=== PATIENT | female | born 1940 | race Caucasian/White ===

== ENCOUNTER 2017-08-08 11:39 | Emergency (ER) | payer OTHER ==
[~2017-08-08] VITALS: Ht 149.9 cm; Wt 75.0 kg
[~2017-08-08 11:39] MED LIST: ACTOS30 MG PO; ADULT LOW DOSE81 M1 PO; ALER-CAP25 M1 PO; ALPRAZOLAM0.25 M2 PO; ASPIR 8181 M1 PO; ASPIR-LOW81 MG PO; ASPIR-TRIN325 M1 PO; B-COMPLEX WITH1 EAC2 PO; B-COMPLEX-VITA1 EACH PO; BACTRIM,SEPT1 TABLET PO; BMP 0; CARAFATE1 GM PO; CATAPRES0.2 MG PO; CATAPRES0.3 MG PO; CELEBREX200 MG PO; CELEXA10 MG PO; CELLCEPT500 MG PO; CIPROFLOXACIN500 M1 PO; CITALOPRAM HBR10 M1 PO; COMPLETE MULTI1 EAC1 PO; Cellcept PO; Ecotrin PO; FEOSOL325 MG PO; FLAGYL250 MG PO; FOSAMAX70 MG PO; Feosol PO; Fosamax PO; GLIPIZIDE10 MG PO; GLIPIZIDE5 MG PO; GLUCOPHAGE1000 MG PO; HYDROCHLOROTHIA25 MG PO; JANUVIA100 MG PO; LANTUS 3 M100 UNITS/ SC; LANTUS 3 M100 UNITS1 SC; LANTUS100 UNIT/1 SQ; LATANOPROST2.5 ML LEFT EYE; LIPITOR10 MG PO; LIPITOR5 MG PO; LISINOPRIL10 MG PO; LISINOPRIL40 MG PO; LOPERAMIDE2 MG PO; MESTINON180 MG PO; MESTINON60 MG PO; METRONIDAZOLE500 MG PO; MICARDIS HCT PO; MICARDIS HCT1 TABLET PO; MICARDIS40 MG PO; MYCOPHENOLATE250 MG PO; NEXIUM40 MG PO; NON-ASPIRIN EX500 MG PO; NORVASC10 MG PO; OSTEO BI-FLEX1 EAC1 PO; OSTEO-BIFLE1 CAPSULE PO; Osteo-Biflex,Flex-A- PO; PRESERVISION S1 EACH PO; PRESERVISION T1 EACH PO; PROTONIX40 MG PO; PROZAC10 MG PO; PYRIDOSTIGMINE60 MG PO; SENOKOT S,PE1 TABLET PO; TRAMADOL HCL50 MG PO; Vicodin,Lortab 5/500 PO; Vicodin,Norco 5/325 PO; Xanax PO; ZESTRIL,PRINIV2.5 MG PO; ZOFRAN ODT4 MG PO; celeXA PO
[2017-08-08] MEDS ORDERED: PREDNISONE20 MG PO (11:51)
[2017-08-08] MEDS ORDERED: CARAFATE1 GM PO (11:52)
[2017-08-08] MEDS ORDERED: LEXAPRO10 MG PO (11:52)
[2017-08-08] MEDS ORDERED: PROTONIX40 MG PO (11:52)
[2017-08-08] MEDS ORDERED: GLIPIZIDE10 MG PO (11:53)
[2017-08-08] MEDS ORDERED: CELLCEPT500 MG PO (11:53)
[2017-08-08] MEDS ORDERED: NORVASC10 MG PO (11:54)
[2017-08-08] MEDS ORDERED: CATAPRES0.2 MG PO (11:54)
[2017-08-08] MEDS ORDERED: LIPITOR10 MG PO (11:55)
[2017-08-08] MEDS ORDERED: FOSAMAX70 MG PO (11:55)
[2017-08-08] MEDS ORDERED: TRAMADOL HCL50 MG PO (11:55)
[2017-08-08] MEDS ORDERED: VITAMIN B COMP1 EACH PO (11:56)
[2017-08-08] MEDS ORDERED: PRESERVISION T1 EACH PO (11:57)
[2017-08-08] MEDS ORDERED: ASPIR 8181 M1 PO (11:57)
[2017-08-08] MEDS ORDERED: FLAGYL250 MG PO (11:58)
[2017-08-08] MEDS ORDERED: NOVOLOG PE100 UNITS/ SC (11:59)
[2017-08-08] MEDS ORDERED: MIRALAX17 GM PO (11:59)
[2017-08-08] MEDS ORDERED: COZAAR25 MG PO (11:59)
[2017-08-08 12:28] LABS: EOSINOPHIL (%) 0.3 % (0-5); EOSINOPHIL COUNT 0.1 K/uL (0-0.3); HEMATOCRIT 32.9 % (36.0-46.0); IMMATURE GRANULOCYTE (%) 2.1 % (0.0-0.7); IMMATURE GRANULOCYTE COUNT 0.4 K/uL; LYMPHOCYTE COUNT 1.7 K/uL (1.0-2.8); MCH 30.1 PG (29.0-34.0); MCHC 32.2 G/DL (30.0-36.0); MCV 93.5 FL (83-99); MEAN PLAT.VOLUME 9.6 uM^3 (9.5-12.4); MONOCYTE (%) 9.3 % (3-12); MONOCYTE COUNT 1.8 K/uL (0-0.8); NRBC (%) 0.1 /100 WBC (0-0); PLATELET COUNT 242 K/uL (156-360); RBC DIS.WIDTH-CV 13.4 % (11.8-14.6); RED BLOOD COUNT 3.52 M/uL (3.80-5.20)
[2017-08-08 12:42] LABS: CHLORIDE 103 mEq/L (99-109); POTASSIUM 3.3 mEq/L (3.7-5.4); SODIUM 139 mEq/L (136-147)
[2017-08-08 12:43] LABS: GLUCOSE 218 mg/dL (70-99)
[2017-08-08 12:45] LABS: ANION GAP 16 MEQ/L (2-14)
[2017-08-08 12:47] LABS: GFR ESTIMATE (CALCULATED) 57 mL/min/
[2017-08-08 12:48] LABS: UREA NITROGEN (BUN) 24 mg/dL (9-23)
[2017-08-08 12:50] LABS: CREATINE KINASE 322 IU/L (1-294); TOTAL CK 322 IU/L (1-294)
[2017-08-08 13:00] LABS: CK-MB 2.9 ng/mL (0.0-4.9)
[2017-08-08] MEDS ORDERED: PERCOCET 5/31 TABLET PO (15:54)
[2017-08-08 16:20] VITALS: BP 189/110
== END 2017-08-08 16:54 | disposition home or self-care (01) ==
LOC: TRA 11:39 → EME 11:39
PROVIDERS: Emergency Medicine
PROC: 2W3JX1Z Immobilization of Right Finger using Splint (ICD-10-PCS; principal; 2017-08-08)
DX: S62.644A Nondisplaced fracture of proximal phalanx of right ring finger, initial encounter for closed fracture (principal); S00.12XA Contusion of left eyelid and periocular area, initial encounter; S60.512A Abrasion of left hand, initial encounter; M25.512 Pain in left shoulder; S20.212A Contusion of left front wall of thorax, initial encounter; W10.9XXA Fall (on) (from) unspecified stairs and steps, initial encounter; I12.9 Hypertensive chronic kidney disease with stage 1 through stage 4 chronic kidney disease, or unspecified chronic kidney disease; E11.22 Type 2 diabetes mellitus with diabetic chronic kidney disease; N18.9 Chronic kidney disease, unspecified; Z79.4 Long term (current) use of insulin; Z87.442 Personal history of urinary calculi; Z96.653 Presence of artificial knee joint, bilateral
CPT/HCPCS: 70450; 70486; 71260; 72125; 72129; 72132; 73030; 73130; 73590; 73630; 74177; 80048; 82550; 82553; 85025; 99281; 99284; J1885; J2405; J7030

== ENCOUNTER 2017-12-10 10:06 | Inpatient (IN) | payer OTHER ==
[~2017-12-10] VITALS: Ht 149.9 cm; Wt 71.1 kg
[~2017-12-10 10:06] MED LIST changes: +COZAAR100 MG PO; +LATANOPROST2.5 ML BOTH EYES; -LATANOPROST2.5 ML LEFT EYE; +LEXAPRO10 MG PO; +MIRALAX17 GM PO; +NOVOLOG PE100 UNITS/ SC; +PERCOCET 5/31 TABLET PO; +PREDNISONE10 MG PO; +VITAMIN B COMP1 EACH PO
[2017-12-10 11:59] LABS: BASOPHIL (%) 0.4 % (0-1); EOSINOPHIL (%) 0.7 % (0-5); EOSINOPHIL COUNT 0.1 K/uL (0-0.3); HEMATOCRIT 39.7 % (36.0-46.0); IMMATURE GRANULOCYTE (%) 0.9 % (0.0-0.7); LYMPHOCYTE (%) 11.8 % (15-42); LYMPHOCYTE COUNT 1.1 K/uL (1.0-2.8); MCH 30.1 PG (29.0-34.0); MCHC 32.7 G/DL (30.0-36.0); MCV 91.9 FL (83-99); MONOCYTE (%) 11.3 % (3-12); MONOCYTE COUNT 1.1 K/uL (0-0.8); NEUTROPHIL (%) 74.9 % (45-76); NEUTROPHIL COUNT 7.2 K/uL (1.8-6.4); PLATELET COUNT 396 K/uL (156-360); RBC DIS.WIDTH-CV 13.4 % (11.8-14.6); RBC DIS.WIDTH-SD 45.4 % (39-53); RED BLOOD COUNT 4.32 M/uL (3.80-5.20); WHITE BLOOD COUNT 9.6 K/uL (4.1-10.2)
[2017-12-10 12:10] LABS: ALBUMIN 3.4 g/dL (3.2-4.8); CHLORIDE 110 mEq/L (99-109); SODIUM 141 mEq/L (136-147)
[2017-12-10 12:12] LABS: GLUCOSE 81 mg/dL (70-99); TOTAL PROTEIN 5.7 g/dL (6.4-8.3)
[2017-12-10 12:14] LABS: POTASSIUM 2.2 mEq/L (3.7-5.4); TOTAL BILIRUBIN 0.4 mg/dL (0.0-1.0)
[2017-12-10 12:16] LABS: ALKALINE PHOSPHATASE 83 IU/L (3-129); CREATININE 1.1 mg/dL (0.6-1.3); GFR ESTIMATE (CALCULATED) 51 mL/min/
[2017-12-10 12:17] LABS: AST (GOT) 11 IU/L (2-34); DIRECT BILIRUBIN 0.2 mg/dL (0.0-0.3); UREA NITROGEN (BUN) 21 mg/dL (9-23)
[2017-12-10 12:19] LABS: ALT (GPT) 21 IU/L (3-49); LIPASE 26 U/L (1.0-51.0)
[2017-12-10 12:49] LABS: APPEARANCE CLEAR ((CLEAR)); BILIRUBIN NEGATIVE; BLOOD SMALL; COLOR STRAW ((YELLOW)); GLUCOSE (STRIP) NEGATIVE; KETONES NEGATIVE; LEUKOCYTES LARGE; NITRITE NEGATIVE; PROTEIN (STRIP) 30; UROBILINOGEN 0.2 MG/DL (0.2-1.0)
[2017-12-10 12:55] LABS: BACTERIA NONE SEEN /HPF; CALCIUM OXALATE CRYSTALS 1+ /HPF; EPITHELIAL CELLS RARE /HPF; MUCUS NONE SEEN /LPF; UCUL ADDED? YES; WHITE BLOOD CELLS 15-20 /HPF (0-5)
[2017-12-10] MEDS ORDERED: TRAZODONE HCL50 MG PO (16:21)
[2017-12-10] MEDS ORDERED: ZOFRAN8 MG PO (16:21)
[2017-12-10] MEDS ORDERED: ALPHAGAN 0100 DROP/5 BOTH EYES (16:21)
[2017-12-10] MEDS ORDERED: ALPRAZOLAM0.25 M2 PO (16:21)
[2017-12-10] MEDS ORDERED: TYLENOL PM EX-1 EACH PO (16:23)
[2017-12-10] MEDS ORDERED: DORZOLAMIDE-TIM10 ML BOTH EYES (16:23)
[2017-12-10 17:31] LABS: C DIFF TOXIN NEGATIVE (NEGATIVE)
[2017-12-10 19:32] VITALS: BP 164/80
[2017-12-10 23:29] VITALS: BP 156/80
[2017-12-11 03:12] VITALS: BP 131/81
[2017-12-11 06:23] LABS: HEMATOCRIT 34.3 % (36.0-46.0); MCH 30.1 PG (29.0-34.0); MCHC 32.1 G/DL (30.0-36.0); PLATELET COUNT 347 K/uL (156-360); RBC DIS.WIDTH-CV 13.7 % (11.8-14.6); RBC DIS.WIDTH-SD 47.4 % (39-53); RED BLOOD COUNT 3.65 M/uL (3.80-5.20); WHITE BLOOD COUNT 7.4 K/uL (4.1-10.2)
[2017-12-11 06:58] LABS: CHLORIDE 115 MEQ/L (99-109); CREATININE 1.2 MG/DL (0.6-1.3); GFR ESTIMATE (CALCULATED) 47 mL/min/; GLUCOSE 144 mg/dL (70-99); POTASSIUM 4.4 MEQ/L (3.7-5.4); SODIUM 142 MEQ/L (136-147); UREA NITROGEN (BUN) 18 mg/dL (9-23)
[2017-12-11 08:33] VITALS: BP 166/92
[2017-12-11 13:13] VITALS: BP 156/86
[2017-12-11 15:32] VITALS: BP 190/104
[2017-12-11 16:30] VITALS: BP 145/86
[2017-12-11 20:32] VITALS: BP 177/96
[2017-12-12] VITALS: BP 112/67
[2017-12-12 04:06] VITALS: BP 131/73
[2017-12-12 06:57] LABS: BASOPHIL (%) 0.2 % (0-1); EOSINOPHIL COUNT 0.1 K/uL (0-0.3); HEMATOCRIT 33.3 % (36.0-46.0); HEMOGLOBIN 10.6 G/DL (11.9-15.5); IMMATURE GRANULOCYTE (%) 1.4 % (0.0-0.7); LYMPHOCYTE (%) 12.1 % (15-42); MCH 29.9 PG (29.0-34.0); MCHC 31.8 G/DL (30.0-36.0); MCV 94.1 FL (83-99); MONOCYTE (%) 8.5 % (3-12); MONOCYTE COUNT 0.7 K/uL (0-0.8); NEUTROPHIL (%) 76.8 % (45-76); NEUTROPHIL COUNT 6.4 K/uL (1.8-6.4); PLATELET COUNT 359 K/uL (156-360); RBC DIS.WIDTH-CV 13.8 % (11.8-14.6); RBC DIS.WIDTH-SD 47.6 % (39-53); RED BLOOD COUNT 3.54 M/uL (3.80-5.20); WHITE BLOOD COUNT 8.3 K/uL (4.1-10.2)
[2017-12-12 07:16] LABS: CHLORIDE 111 MEQ/L (99-109); CREATININE 1.2 MG/DL (0.6-1.3); GFR ESTIMATE (CALCULATED) 47 mL/min/; MAGNESIUM 1.4 mg/dl (1.3-2.7); SODIUM 141 MEQ/L (136-147); UREA NITROGEN (BUN) 17 mg/dL (9-23)
[2017-12-12 07:17] LABS: GLUCOSE 74 mg/dL (70-99); POTASSIUM 3.5 MEQ/L (3.7-5.4)
[2017-12-12 07:56] VITALS: BP 167/88
[2017-12-12] MEDS ORDERED: KLOR-CON SPRINK8 MEQ PO (11:42)
[2017-12-12 12:28] VITALS: BP 159/92
== END 2017-12-12 12:45 | disposition home or self-care (01) | DRG 392 ==
LOC: EME 10:06 → EDOF 14:57 → 5SOUTH 14:57 → ENRESERV 15:00 → 5SOUTH 17:40
PROVIDERS: Emergency Medicine; Internal Medicine; Physician Assistant
DX: A08.4 Viral intestinal infection, unspecified (principal); E87.6 Hypokalemia; E86.0 Dehydration; E11.22 Type 2 diabetes mellitus with diabetic chronic kidney disease; G70.00 Myasthenia gravis without (acute) exacerbation; I12.9 Hypertensive chronic kidney disease with stage 1 through stage 4 chronic kidney disease, or unspecified chronic kidney disease; N18.3 Chronic kidney disease, stage 3 (moderate); Z68.31 Body mass index [BMI] 31.0-31.9, adult; Z79.4 Long term (current) use of insulin; Z96.659 Presence of unspecified artificial knee joint; Z87.442 Personal history of urinary calculi; Z86.19 Personal history of other infectious and parasitic diseases; Z90.49 Acquired absence of other specified parts of digestive tract
CPT/HCPCS: 80048; 80076; 81003; 82948; 83605; 83630; 83690; 83735; 84132 91; 85025; 85027; 87045; 87046; 87086; 87425-90; 87493; 87506; 93005; 99281; 99285; J0360; J0696; J1650; J2405; J3480; J7030; J7120; J7512

== ENCOUNTER 2018-05-04 11:16 | Emergency (ER) | payer OTHER ==
[~2018-05-04 11:16] MED LIST changes: +ALPHAGAN 0100 DROP/5 BOTH EYES; +DORZOLAMIDE-TIM10 ML BOTH EYES; +KLOR-CON SPRINK8 MEQ PO; +TRAZODONE HCL50 MG PO; +TYLENOL PM EX-1 EACH PO; +ZOFRAN8 MG PO
== END 2018-05-04 11:18 ==
LOC: EME 11:16
DX: I46.9 Cardiac arrest, cause unspecified (principal); I10 Essential (primary) hypertension; E78.5 Hyperlipidemia, unspecified; E11.9 Type 2 diabetes mellitus without complications; Z79.4 Long term (current) use of insulin; Z79.52 Long term (current) use of systemic steroids; Z79.82 Long term (current) use of aspirin
CPT/HCPCS: 99281; 99284